=== PATIENT | male | born 2000 | race Two or more races ===

== ENCOUNTER 2024-12-31 16:12 | Emergency (ER) | payer OTHER, SELFPAY ==
[2024-12-31 16:13] VITALS: BMI 35.3
[2024-12-31 16:20] VITALS: BP 148/88; PULSE 67; RESP 18; TEMP 37.3; O2SAT 97
--- NOTE | 2024-12-31 16:24 | XR_ITS ---
Examination: CT abdomen and pelvis without contrast. Coronal 3-D reconstructions. Sagittal 2-D reconstructions. Date and time of exam:December 31, 2024, 1711 hours INDICATIONS: Palpable hernia left groin pain after injury 2 days ago CTDI: vol (mGy): 14 DLP: (mGycm): 962 Technique: Axial images of the abdomen have been obtained, 3 mm slice thickness Intravenous contrast material has not been administered. Low dose protocols were performed. One or more of the following dose reduction techniques were used; automated exposure control, adjustment of the mA and/or KV according to patient size, use of iterative reconstruction technique. Findings: 15 mm fat-containing umbilical hernia. Absent appendix No bowel obstruction Contracted urinary bladder No inguinal or common femoral hernia Intact osseous structures IMPRESSION: 15 mm fat-containing umbilical hernia No common femoral or inguinal hernia defect noted
--- NOTE | 2024-12-31 16:25 | PD.EDRME ---
Rapid Medical Screening Exam RME Arrival date/time: 12/31/24 16:12 24-year-old male presents emergency department today for complaints of swelling to his inguinal region after lifting heavy object at work yesterday Chief Complaint: General Adult/Misc Complain Time Seen by Provider: 12/31/24 16:18 Vital signs: Vital Signs Temperature 99.1 F 12/31/24 16:20 Pulse Rate 67 12/31/24 16:20 Respiratory Rate 18 12/31/24 16:20 Blood Pressure 148/88 H 12/31/24 16:20 Pulse Oximetry (%) 97 12/31/24 16:20 Oxygen Delivery Method Room Air 12/31/24 16:20
[2024-12-31 16:51] LABS: Basophils # (Auto) 0.1 Thou/mm3 (0.0-0.2); Basophils % (Auto) 1 % (0-2.5); Eosinophils # (Auto) 0.2 Thou/mm3 (0.0-0.5); Eosinophils % (Auto) 2 % (0-10); Hematocrit 44.5 % (41.0-53.0); Hemoglobin 15.8 g/dL (13.5-16.0); Immature Granulocytes % (Auto) 1 % (0-0); Immature Granulocytes Auto 0.07 Thou/mm3 (0.00-0.00); Lymphocytes # (Auto) 3.4 Thou/mm3 (1.0-4.8); Lymphocytes % (Auto) 35 % (10-50); Mean Corpuscular HGB Conc 35.5 g/dl (31.0-37.0); Mean Corpuscular Volume 85 fL (80-100); Monocytes # (Auto) 0.7 Thou/mm3 (0.0-0.8); Monocytes % (Auto) 7 % (0-12); Neutrophils # (Auto) 5.3 Thou/mm3 (1.8-7.7); Neutrophils % (Auto) 55 % (37-80); Nucleated Red Blood Cell % 0 /100 WBC (0); Platelet Count 250 Thou/mm3 (140-440); RDW Standard Deviation 38.4 fL (35.1-43.9); Red Blood Count 5.26 Miln/mm3 (4.50-5.90); White Blood Count 9.7 Thou/mm3 (3.8-10.6)
[2024-12-31 17:11] LABS: Alanine Aminotransferase 75 U/L (10-49); Albumin, Serum 4.7 gm/dL (3.5-5.0); Albumin/Globulin Ratio 2.1 (1.2-2.2); Alkaline Phosphatase 82 U/L (46-116); Anion Gap 8 (7-16); Aspartate Amino Transferase 38 U/L (0-34); BUN/Creatinine Ratio 11 Ratio (12-20); Bilirubin,Total 0.3 mg/dL (0.3-1.2); Blood Urea Nitrogen 12 mg/dL (9-23); Calcium 9.7 mg/dL (8.3-10.6); Calcium (Corrected) 9.7 mg/dL (8.5-10.1); Carbon Dioxide 27.7 mMol/L (20.0-31.0); Chloride 106 mMol/L (98-107); Creatinine (Component) 1.1 mg/dL (0.6-1.3); Estimated Creatinine Clearance 146.6 mL/min (>60); Globulin 2.2 gm/dL (2.3-3.5); Glucose 101 mg/dL (74-106); Osmolality,Calculated 282 (275-295); Potassium 4.4 mMol/L (3.4-5.1); Sodium 142 mMol/L (136-145); Total Protein 6.9 gm/dL (5.7-8.2); eGFR > 60 See Note
[2024-12-31 19:17] VITALS: BP 135/85; PULSE 68; RESP 17; TEMP 36.9; O2SAT 99
--- NOTE | 2024-12-31 19:19 | EDNOTE_ITS ---
ED General RME/HPI General Chief complaint: General Adult/Misc Complain Stated complaint: LEFT GROIN PAIN, WORK INJURY SINCE YESTERDAY Time Seen by Provider: 12/31/24 16:18 Arrival date/time: 12/31/24 16:12 RME / HPI RME / HPI narrative: 24-year-old male patient came in for evaluation regarding left inguinal discomfort. Patient was lifting heavy object at work yesterday and noticed some shooting pain. Patient denies any vomiting denies any fever denies any other complaints. Patient is ambulatory. Related Data Previous Rx's ?Medication ?Instructions ?Recorded Hydrocodone/Acetaminophen * (NORCO 1 tab PO Q6H PRN PA IN 5 days #0 05/24/17 5/325 *) tabs ibuprofen 600 mg tablet 600 mg PO Q6HR PRN PAIN 6 da ys #0 05/24/17 tabs Allergies Allergy/AdvReac Type Severity Reaction Status Date / Time NKA* Allergy Uncoded 12/31/24 16:14 Review of Systems Review of Systems Narrative Review of Systems: Review of system reviewed and within normal limits except mentioned in HPI ED Exam Narrative Physical exam: VITAL SIGNS: Reviewed. GENERAL APPEARANCE: Alert and interactive, follows commands, no acute distress, HEAD AND FACE: Non-traumatic. ENT: PERRL, pink conjunctivitis, eyelid no trauma, Mucous membrane moist. NECK: Supple, nontender, no nuchal rigidity. CHEST: No tenderness, no crepitus, no paradoxical movement, no retractions. LUNGS: Clear, well ventilated, symmetric, no rales, no wheezing, no ronchi, no stridor, good breath sounds bilaterally. HEART: Regular rate, regular rhythm, no murmur, no gallops. ABDOMEN: Soft, positive bowel sounds, nondistended, no guarding, nontender, no rebound, no masses, no RECTAL: Deferred. GENITAL: Deferred. NEUROLOGICAL: Gross motor function intact sensory function intact, Appropriate for age. MUSCULOSKELETAL: low back nontender, full range of motion. EXTREMITIES: Nontender, full range of motion. SKIN: Color pink, dry, no rash, no lacerations, no abrasions, no contusions. LYMPHATICS: Deferred. Course Quality Measures none Orders Category Date Time Status CT abdomen pelvis wo con Stat Exams 12/31/24 16:24 Completed CBC Stat Lab 12/31/24 16:37 Completed CMP [Comprehensive Metabolic Panel] Stat Lab 12/31/24 16:37 Completed Vital Signs Vital signs: Vital Signs Temperature 99.1 F 12/31/24 16:20 Pulse Rate 67 12/31/24 16:20 Respiratory Rate 18 12/31/24 16:20 Blood Pressure 148/88 H 12/31/24 16:20 Pulse Oximetry (%) 97 12/31/24 16:20 Oxygen Delivery Method Room Air 12/31/24 16:20 Discharge Plan Plan Patient Disposition: HOME (Self Care) Discharge Disposition comment: stable Prescriptions/Referrals Prescriptions/Med Rec: No Action ibuprofen 600 MG tablet 600 mg PO Q6HR PRN (Reason: PAIN) 6 Days Qty: 0 1RF Hydrocodone/Acetaminophen * (NORCO 5/325 *) 1 TAB tablet 1 tab PO Q6H PRN (Reason: PAIN) 5 Days Qty: 0 0RF Referrals: No Primary/Family,Physician [Primary Care Provider] - In 1 week Problem List Clinical Impression: Inguinal pain, Umbilical hernia Patient/Caregiver Discharge Instructions Discharge Activity: activity as tolerated Education Materials: ED Hernia (Adult) Additional Instructions: Thank you for the opportunity for serving you today. You are stable for discharged . You are advised to: Follow-up with your PCP in 1 to 2 days Return to ED for worsening of symptoms Way[place] closely for worsening of your umbilical hernia. We did not find any fe moral or inguinal hernia at this time Print Language: Georgian Stand Alone Forms: Zoe Award Info., Patient Portal Info Letter AYE/KATHY Supervising Physician AYE/KATHY Supervising Physician: MD Millie [facility] Narrative [facility] hospital course: 24-year-old male patient came in for evaluation regarding left inguinal discomfort. Patient was lifting heavy object at work yesterday and noticed some shooting pain. Patient denies any vomiting denies any fever denies any other complaints. Patient is ambulatory. CT scan of the abdomen pelvis came back unremarkable. Except for umbilical hernia with fat containing otherwise unremarkable. No femoral or inguinal hernia noted. Laboratory workup with normal results discussed with the patient.
== END 2024-12-31 19:27 | disposition home or self-care (01) ==
PROVIDERS: Nurse Practitioner Primary Care; Emergency Provider Emergency Medicine
DX: K42.9 Umbilical hernia without obstruction or gangrene (principal); R10.32 Left lower quadrant pain
CPT/HCPCS: 36415; 74176; 80053; 85025; 99284